=== PATIENT | male | born 1980 | race American Indian/Alaskan Native ===

== ENCOUNTER 2021-05-05 01:06 | Emergency (ER) | payer SELFPAY ==
--- NOTE | 2021-05-05 05:56 | Emergency Department Report ---
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 MD Complaint: burn -: Gradual Smoke Inhalation: none Location - Extremities: Left: Hand Severity: moderate Associated Symptoms: denies: headache, vision changes, fever/chills, chest pain, neck pain, nausea/vomiting - Related Data Previous Rx's Medication Instructions Recorded Last Taken Type traMADoL [Ultram] 50 mg PO Q6HR PRN #10 tablet 05/05/21 Unknown Rx Allergies Allergy/AdvReac Type Severity Reaction Status Date / Time No Known Allergies Allergy Verified 05/05/21 02:15 Burn HPI - History Stated Complaint: BURN TO HAND Chief Complaint: Burn/Smoke Inhalation Time Seen by Provider: 05/05/21 05:43 - Home Meds and Allergies Home Medications: Previous Rx's Medication Instructions Recorded Last Taken Type traMADoL [Ultram] 50 mg PO Q6HR PRN #10 tablet 05/05/21 Unknown Rx Allergies/Adverse Reactions: Allergies Allergy/AdvReac Type Severity Reaction Status Date / Time No Known Allergies Allergy Verified 05/05/21 02:15 ED Review of Systems ROS: Stated complaint: BURN TO HAND Other details as noted in HPI Comment: All other systems reviewed and negative ED Past Medical Hx - Past Medical History Hx Hypertension: Yes - Surgical History Past Surgical History?: No - Medications Home Medications: Home Medications Medication Instructions Recorded Confirmed Last Taken Type traMADoL [Ultram] 50 mg PO Q6HR PRN #10 tablet 05/05/21 Unknown Rx ED Physical Exam - General Limitations: No Limitations General appearance: alert, in no apparent distress - Head Head exam: Present: atraumatic, normocephalic - Eye Eye exam: Present: normal appearance, PERRL Pupils: Present: normal accommodation - ENT ENT exam: Present: normal exam, mucous membranes moist - Neck Neck exam: Present: normal inspection, full ROM - Respiratory Respiratory exam: Present: normal lung sounds bilaterally. Absent: respiratory distress - Cardiovascular Cardiovascular Exam: Present: regular rate, normal rhythm. Absent: systolic murmur, diastolic murmur, rubs, gallop - GI/Abdominal GI/Abdominal exam: Present: soft, normal bowel sounds - Rectal Rectal exam: Present: deferred - Extremities Exam Extremities exam: Present: normal inspection - Back Exam Back exam: Present: normal inspection - Neurological Exam Neurological exam: Present: alert, oriented X3 - Psychiatric Psychiatric exam: Present: normal affect, normal mood - Skin Skin exam: Present: warm, dry, intact, normal color. Absent: rash ED Course Vital Signs 05/05/21 05/05/21 02:12 02:14 Temperature 98 F Pulse Rate 81 Respiratory 18 Rate Blood Pressure 176/105 [Left] O2 Sat by Pulse 96 Oximetry Critical care attestation.: If time is entered above; I have spent that time in minutes in the direct care of this critically ill patient, excluding procedure time. ED Disposition Clinical Impression: First degree burn of left hand Disposition: 01 HOME / SELF CARE / HOMELESS Is pt being admited?: No Does the pt Need Aspirin: No Condition: Stable Instructions: Burn Care, Adult Additional Instructions: Seen emerge department today for first-degree burn to left hand sustained by hot water please be sure to treat this with cold water compresses as we discussed do not utilize any burn creams or sprays as they may worsen the symptoms associated with this first-degree burn. Prescriptions: traMADoL [Ultram] 50 mg PO Q6HR PRN #10 tablet PRN Reason: Pain Referrals: [facility] [Provider Group] - 3-5 Days Forms: Work/School Release Form(ED)
[2021-05-05 07:05] VITALS: BP 150/90
== END 2021-05-05 06:34 | disposition home or self-care (01) ==
LOC: ED 01:06
DX: T23.102A Burn of first degree of left hand, unspecified site, initial encounter (principal); X08.8XXA Exposure to other specified smoke, fire and flames, initial encounter; Y93.89 Activity, other specified; Y92.89 Other specified places as the place of occurrence of the external cause; Y99.8 Other external cause status; I10 Essential (primary) hypertension
CPT/HCPCS: 99282

== ENCOUNTER 2021-05-16 10:52 | Emergency (ER) | payer SELFPAY ==
[2021-05-16] MEDS ORDERED: HYDROcodone/ACETAMINOPHEN 10-325MG TAB PO ONE (12:23)
--- NOTE | 2021-05-16 12:24 | Emergency Department Report ---
Upper Extremity - HPI Chief Complaint: Extremity Injury, Upper Stated Complaint: RIGHT WRIST PAIN Upper Extremity: Right Middle Finger (Third knuckle ) Occurred When: 2 Days Severity: moderate Symptoms: Yes Pain with Movement, Yes Deformity, Yes Limited Range of Movement, Yes Swelling, Yes Bruising/Ecchymosis, No Numbness, No Weakness, No Laceration or Abrasion Other History: Patient presents to ED with complaints of pain and swelling to right 3rd knuckle. Patient states he injuryed his hand/right 3rd finger about 2 days ago at work. He states he was climbing down from [employer] he was operating when his finger got caught metal bar on the chair. He states is finger hyerabducted and He states he noticed increase swelling today and reports decrease movement of finger due to pain. He states he is right hand dominant. ED Review of Systems ROS: Stated complaint: RIGHT WRIST PAIN Other details as noted in HPI Comment: All other systems reviewed and negative Constitutional: denies: chills, fever Respiratory: denies: cough, shortness of breath, wheezing Cardiovascular: denies: chest pain, palpitations Musculoskeletal: joint swelling, arthralgia, myalgia Skin: denies: change in color, change in hair/nails, pruritus Neurological: denies: headache, weakness, paresthesias, vertigo Psychiatric: denies: anxiety, depression, auditory hallucinations, visual hallucinations, homicidal thoughts ED Past Medical Hx - Past Medical History Previous Medical History?: Yes Hx Hypertension: Yes - Surgical History Past Surgical History?: No - Medications Home Medications: Home Medications Medication Instructions Recorded Confirmed Last Taken Type traMADoL [Ultram] 50 mg PO Q6HR PRN #10 tablet 05/05/21 Unknown Rx Acetaminophen/Codeine [Tylenol 1 tab PO Q6H PRN #12 tab 05/16/21 Unknown Rx /Codeine # 3 tab] Ibuprofen [Motrin] 600 mg PO Q8H PRN #30 tablet 05/16/21 Unknown Rx Upper Extremity Exam - Exam General: Vital signs noted. No distress. Alert and acting appropriately. Head and Torso: No HEENT Abnormality, No Neck Tenderness, No Chest/Lungs Abnormality, No Abdominal Tenderness, No Back Tenderness Shoulder Exam: Yes Normal Range of Motion in Shoulder, No Shoulder Tenderness, No Clavicle Tenderness, No Shoulder Deformity, No AC Joint Tenderness Arm Exam: No Arm/Humerus Tenderness, No Arm Deformity Elbow: Yes Normal Range of Motion in Elbow, No Elbow Tenderness, No Elbow Deformity Forearm: No Forearm Tenderness, No Forearm Deformity, No Pain with Pronation, No Pain with Supination Wrist: Yes Normal ROM in Wrist, No Wrist Tenderness, No Wrist Deformity, No Snuffbox Tenderness, No Pain with Axial Thumb Compression Hand: Yes Digit Tenderness (severe ttp right 3rd knuckle with associated swelling, erythema/bruising, no streaking and this is mainly dorsal. Flexion at the level of the MCP of 3rd finger decreased. cap refill nl. sensations intact) CMS Exam: Yes Broken Skin, No Normal Distal Pulses, No Normal Capillary Refill, No Normal Distal Sensation ED Course Vital Signs 05/16/21 12:17 Temperature 98 F Pulse Rate 102 H Respiratory 16 Rate Blood Pressure 227/156 [Left] O2 Sat by Pulse 97 Oximetry ED Medical Decision Making - Radiology Data Radiology results: report reviewed Patient: EDGAR SEPULVEDA MR#: [id number] [birth year] : 1980 Acct:[id number] Age/Sex: 40 / M ADM Date: 05/16/21 Loc: ED Attending Dr: Ordering Physician: PHILIP JOSE Date of Service: 05/16/21 Procedure(s): XR hand 3+V RT Accession Number(s): [id number] cc: PHILIP JOSE Fluoro Time In Minutes: XR hand 3+V RT INDICATION / CLINICAL INFORMATION: pain/swelling/injury 3rd knuckle. COMPARISON: None available. FINDINGS: BONES/JOINT(S): No acute fracture or subluxation. No significant degenerative changes. SOFT TISSUES: No significant abnormality. ADDITIONAL FINDINGS: None. Signer Name: Ted Benitez MD Signed: 05/16/2021 12:55 PM Workstation Name: [id number] Transcribed By: KM Dictated By: Ted Benitez MD Electronically Authenticated By: Ted Benitez MD Signed Date/Time: 05/16/21 125 DD/ 54 TD/TT: Critical care attestation.: If time is entered above; I have spent that time in minutes in the direct care of this critically ill patient, excluding procedure time. ED Disposition Clinical Impression: Finger sprain, Elevated blood pressure reading Disposition: HOME / SELF CARE / HOMELESS Is pt being admited?: No Does the pt Need Aspirin: No Condition: Stable Instructions: Preventing Hypertension, Finger Sprain, Adult, Managing Your Hypertension Additional Instructions: Recommend that you take the ibuprofen and Tylenol threes as prescribed. Use the finger splint for the next 4 to 5 days. Recommend limited use of that finger for the next 4 to 5 days. You can apply ice over the area to help with any pain. If your symptoms persist for another 1 to 2 weeks I recommend following up with autism specialist for further evaluation. If you do not have an autism specialist will be provided for you on discharge. Your blood pressure was also was noted to be elevated at triage. I do recommend that you monitor your blood pressure at home, there is no more than twice a day, and keep a record of your blood pressure. Follow-up with a primary care doctor next week for further evaluation of your blood pressure and possible treatment of your high blood pressure. Return to the ER if your symptoms worsens in any way. Prescriptions: Ibuprofen [Motrin] 600 mg PO Q8H PRN #30 tablet PRN Reason: Pain Acetaminophen/Codeine [Tylenol /Codeine # 3 tab] 1 tab PO Q6H PRN #12 tab PRN Reason: Pain , Severe (7-10) Referrals: ZACH DOMINIQUE MD [Staff Physician] - 3-5 Days SWEETIE SUBRAMANIAN MD [Staff Physician] - 3-5 Days Forms: Work/School Release Form(ED) Time of Disposition: 13:36
--- NOTE | 2021-05-16 13:00 | XRay Report ---
XR hand 3+V RT INDICATION / CLINICAL INFORMATION: pain/swelling/injury 3rd knuckle. COMPARISON: None available. FINDINGS: BONES/JOINT(S): No acute fracture or subluxation. No significant degenerative changes. SOFT TISSUES: No significant abnormality. ADDITIONAL FINDINGS: None. Signer Name: Ted Benitez MD Signed: 05/16/2021 12:55 PM Workstation Name: [id number]
[2021-05-16] MEDS ORDERED: IBUPROFEN 600 MG TAB PO ONE (13:32)
[2021-05-16 14:06] VITALS: BP 175/122
== END 2021-05-16 14:02 | disposition home or self-care (01) ==
LOC: ED 10:52
DX: S63.612A Unspecified sprain of right middle finger, initial encounter (principal); Y99.8 Other external cause status; X58.XXXA Exposure to other specified factors, initial encounter; Y93.89 Activity, other specified; Y92.89 Other specified places as the place of occurrence of the external cause; I10 Essential (primary) hypertension
CPT/HCPCS: 99283